=== PATIENT | female | born 1995 | race Two or more races ===

== ENCOUNTER 2020-11-01 21:41 | Emergency (ER) | payer MEDICAID, OTHER ==
[~2020-11-01] VITALS: Ht 160 cm; Wt 95.3 kg
[2020-11-01 21:51] VITALS: BP 142/98
--- NOTE | 2020-11-01 22:22 | NUR ---
PT AAOX4. AMBULATORY WITH STEADY GAIT. [place] AND [employer]. 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 PT LEFT ED. VSS. DENIES AND COMPLAINTS.
== END 2020-11-01 22:24 | disposition home or self-care (01) ==
LOC: ER 21:44
DX: Z02.89 Encounter for other administrative examinations (principal); T76.21XA Adult sexual abuse, suspected, initial encounter; F31.9 Bipolar disorder, unspecified